=== PATIENT | female | born 2005 | race Caucasian/White ===

== ENCOUNTER 2025-03-31 19:04 | Emergency (ER) | payer OTHER, SELFPAY ==
[2025-03-31 19:06] VITALS: BP 162/90; PULSE 129; RESP 18; TEMP 37.8; O2SAT 100; BMI 29.3
[2025-03-31 19:32] VITALS: BP 148/95; PULSE 126; RESP 18; TEMP 38.2; O2SAT 100
[2025-03-31 19:50] LABS: Mucous, Urine 0 SEEN /hpf (<or=2+)
[2025-03-31 19:57] LABS: Color, Urine Yellow (Yellow); Glucose, Dipstick Normal (Normal); Ketone-Dipstick 50 mg/dl (Negative); Leukocyte Esterase-Dipstick Negative /ul (Negative); Nitrite-Dipstick Negative (Negative); Occult Blood-Urine 50 /ul (Negative); Protein-Dipstick 30 mg/dl (Negative); Specific Gravity, Urine 1.020 (1.002-1.030); Urine Bilirubin Dipstick Negative (Negative)
[2025-03-31] MEDS: 0.9% Normal Saline (1000mL) 1,000 ML 999 ML IV (19:58)
[2025-03-31 20:14] LABS: Red Blood Cells-Urine 0-5 SEEN /hpf (0-5); Squamous Epithelial Cells - UA 0-5 SEEN /hpf (5-10)
--- NOTE | 2025-03-31 20:35 | EX.ED.DYSGE1 ---
HPI History of Present Illness Chief Complaint: Fever Narrative Narrative: 19-year-old female who denies significant past medical history presents with fever that she has had since 3 PM yesterday. She is taken Tylenol and ibuprofen/DayQuil within the last 24 hours. She states she has a sore throat as well as low back pain. She went to urgent care where they tested her for strep and said it was negative. However, they were concerned with her elevated heart rate and told her that it was in the 140s and as high as 170 bpm. She denies any chest pain, no cough or difficulty breathing. No difficulty swallowing. [facility] Medical History No active medical problems Home Medications ?Medication ?Instructions ?Recorded ?Last Taken ?Type spironolactone 50 mg tablet 150 mg PO DAILY 03/31/25 Unknown History (Aldactone) Allergy/AdvReac Type Severity Reaction Status Date / Time peanut Allergy Severe Anaphylaxis Verified 03/31/25 19:09 Penicillins Allergy Mild Hives Verified 03/31/25 19:09 Social History Smoking Status: Never smoker ROS ROS ED ROS Narrative Review of systems positive for fever, sore throat, low back pain. No chills, no cough or difficulty breathing. No runny nose. No nausea or vomiting. No exacerbating or alleviating factors. EXAM Physical Exam Narrative Exam Narrative: Positive fever, positive tachycardia. Awake, alert, nontoxic-appearing. Positive pharyngeal erythema with questionable tonsillar exudate. Airway patent no drooling or trismus. No meningismus. Cardiovascular examination does reveal a tachycardia in the 120's. Lungs clear to auscultation bilaterally. Abdomen is soft and nontender with normal active bowel sounds. No CVA tenderness to percussion. Neurological examination nonfocal, nonlateralizing. Const Vital Signs: 03/31/25 19:06 03/31/25 19:32 03/31/25 19:38 Temperature 100.1 F H 100.7 F H Temperature Source Oral Oral Pulse Rate 129 H 126 H Respiratory Rate 18 18 Respiratory Pattern Normal Blood Pressure 162/90 H 148/95 H Blood Pressure Mean 114 112 Pulse Ox 100 100 Oxygen Delivery Method Room Air Room Air MDM MDM MDM Narrative Medical decision making narrative: Differential diagnosis includes but not limited to UTI versus viral syndrome including mononucleosis versus COVID versus influenza versus RSV. Patient also endorses headache but I do not feel that she needs a CT of the brain. She is awake alert and oriented. She has full range of motion of her neck without pain so I doubt clinical meningitis. She was bolused normal saline and administered ibuprofen orally. Urinalysis obtained and there is no evidence of infection with 0-5 WBCs and 0 bacteria. I do not feel she needs antibiotics for a UTI. Monoscreen is negative. Her COVID and influenza and RSV swab is pending. However, treat would be the same as I think she has more of a viral syndrome. I do not feel she needs antibiotics. At this point in time, I feel she can be discharged to follow-up with her primary care provider. She is agreeable to the plan. Return instructions reviewed. Disposition is discharged home in stable condition. History & Record Review Discussion w/independent historian: Patient Lab Data Attestation: I reviewed the patient's lab results. Labs: Laboratory Results - last 24 hr 03/31/25 03/31/25 19:40 19:52 Urine Color Yellow Urine Clarity Sl. Cloudy Urine pH 6.0 Ur Specific [place] 1.020 Urine Protein 30 H Urine Glucose (UA) Normal Urine Ketones 50 H Urine Occult Blood 50 H Urine Nitrite Negative Urine Bilirubin Negative Urine Urobilinogen Normal Ur Leukocyte Esterase Negative Urine RBC 0-5 SEEN Urine WBC 0-5 SEEN Ur Squamous Epith Cells 0-5 SEEN Urine Bacteria 0 SEEN Urine Mucus 0 SEEN Monoscreen Negative Discharge Plan Triage Chief Complaint: Fever ED Provider: Gerardo Fairbanks Dx/Rx/DC Orders Clinical Impression: Viral syndrome, Tachycardia, Acute febrile illness Instructions: ED About Arrhythmias, ED Fever Control (Adult), ED Pharyngitis, Viral, ED Viral Syndrome (Adult) Prescriptions: No Action spironolactone [Aldactone] 50 mg tablet 150 mg PO DAILY Primary Care Provider: Urvashi Gentile,Out of Referrals: Urvashi Gentile,Out of [Primary Care Provider] - Activity Restrictions/Additional Instructions: Tylenol or ibuprofen as needed fever and pain. Drink plenty of oral fluids. Follow-up with your primary care provider. Return with new or worsening symptoms. Print Language: Mexican Disposition Disposition: Home, Self Care
[2025-03-31 20:41] LABS: Internal QC Validated? YES +Cl - CLEAR BKGD; Record Kit Lot#, Mono 13241430
[2025-03-31 21:08] VITALS: BP 154/89; PULSE 111; RESP 17; TEMP 37.2; O2SAT 100
[2025-03-31 21:16] VITALS: BP 154/89; PULSE 112; RESP 17; TEMP 37.2; O2SAT 99
[2025-03-31 21:31] VITALS: BP 154/89; PULSE 111; RESP 16; TEMP 37.2; O2SAT 99
== END 2025-03-31 21:34 | disposition home or self-care (01) ==
PROVIDERS: Emergency Provider Emergency Medicine; Visit Provider Emergency Medicine
DX: B34.9 Viral infection, unspecified (principal); R00.0 Tachycardia, unspecified; R50.9 Fever, unspecified
CPT/HCPCS: 81001; 86308; 87631; 96360; 99282; A4216